=== PATIENT | female | born 1950 | race Asian ===

== ENCOUNTER 2016-04-03 14:25 | Emergency (ER) | payer OTHER ==
[~2016-04-03] VITALS: Ht 167.6 cm; Wt 104.3 kg
[~2016-04-03 14:25] MED LIST: ALBU90AE13 INH; ALPR0.5T24 PO; ASA LOW STR81 MG PO; BREO ELLIPTA 101 INH IN; BUDE1AER5 INH; CARI350T15 PO; DULO60CA2 PO; FLUT0.05 NAS; FOLI400T2 PO; FURO20TA67 PO; GABA300C2 PO; HYDR-2748 PO; LEVO0.0529 PO; LIDOPATCH TOP; METO25TA4 PO; METO50TA27 PO; MICRO-K10 MEQ PO; NEURONTIN800 MG PO; NITR0.4S2 SL; NYAMYC100000 MG PO; PANT40TA PO; PRAMIPEXOLE0.125 MG PO; SINGULAIR10 MG PO; SOMA350 MG PO; TIOTCAP2 INH; TIZA4TAB5 PO; XANAX XR0.5 MG PO; ZOLP10TA2 PO
[2016-04-03 15:17] LABS: PLATELET COUNT 472 K/uL (152-353)
[2016-04-03 15:30] LABS: POTASSIUM 3.9 mmol/L (3.6-5.2); SODIUM 139 mmol/L (136-145)
[2016-04-03 17:08] VITALS: BP 176/92; TEMP 98.1
== END 2016-04-03 17:09 | disposition home or self-care (01) ==
LOC: ED 14:25
DX: R82.71 Bacteriuria (principal); R60.9 Edema, unspecified; J44.9 Chronic obstructive pulmonary disease, unspecified
CPT/HCPCS: 36415; 80053; 81000; 83880; 85027; 93005; 99283

== ENCOUNTER 2016-04-15 11:52 | Emergency (ER) | payer OTHER ==
[~2016-04-15] VITALS: Ht 170.2 cm; Wt 104.8 kg
[2016-04-15] MEDS ORDERED: NIFE30TA PO (12:23)
[2016-04-15 12:55] LABS: PLATELET COUNT 498 K/uL (152-353)
[2016-04-15 13:15] VITALS: BP 143/88; TEMP 98
== END 2016-04-15 13:15 | disposition home or self-care (01) ==
LOC: ED 11:52
DX: I10 Essential (primary) hypertension (principal)
CPT/HCPCS: 36415; 81000; 85027; 99283

== ENCOUNTER 2016-04-19 10:52 | Outpatient (CLI) | payer OTHER ==
[~2016-04-19 10:52] MED LIST changes: +NIFE30TA PO
[2016-04-19 12:45] LABS: PLATELET COUNT 414 K/uL (152-353)
[2016-04-19 13:14] LABS: POTASSIUM 4.3 mmol/L (3.6-5.2); SODIUM 137 mmol/L (136-145)
== END 2016-04-19 20:04 | disposition home or self-care (01) ==
LOC: LABW 10:52
PROVIDERS: Internal Medicine Hematology & Oncology
DX: D50.8 Other iron deficiency anemias (principal); E55.9 Vitamin D deficiency, unspecified
CPT/HCPCS: 36415; 80053; 82306; 82728; 83540; 83550; 85027

== ENCOUNTER 2016-05-10 14:29 | Outpatient (CLI) | payer OTHER | END 2016-05-10 20:17 | disposition home or self-care (01) | LOC: RAD 14:29 | DX: M54.5 Low back pain (principal) ==

== ENCOUNTER 2016-05-15 14:12 | Emergency (ER) | payer OTHER ==
[~2016-05-15] VITALS: Ht 175.3 cm; Wt 106.1 kg
[2016-05-15 14:18] VITALS: BP 147/78; TEMP 98.1
== END 2016-05-15 14:46 | disposition home or self-care (01) ==
LOC: ED 14:12
DX: B37.0 Candidal stomatitis (principal)
CPT/HCPCS: 99282

== ENCOUNTER 2016-06-09 16:02 | Outpatient (CLI) | payer OTHER | END 2016-06-09 19:42 | disposition home or self-care (01) | LOC: RAD 16:02 | DX: M17.0 Bilateral primary osteoarthritis of knee (principal); M25.552 Pain in left hip ==

== ENCOUNTER 2016-06-14 23:26 | Outpatient (CLI) | payer OTHER | END 2016-06-15 00:10 | disposition short-term general hospital (02) | LOC: AMB 23:26 | DX: J44.1 Chronic obstructive pulmonary disease with (acute) exacerbation (principal); R07.89 Other chest pain; I20.0 Unstable angina; R00.0 Tachycardia, unspecified | CPT/HCPCS: A0425; A0427 ==

== ENCOUNTER 2016-10-27 10:17 | Outpatient (CLI) | payer OTHER ==
[2016-10-27 10:47] LABS: PLATELET COUNT 387 K/uL (152-353)
[2016-10-27 11:27] LABS: SODIUM 140 mmol/L (136-145)
== END 2016-10-27 11:20 | disposition home or self-care (01) ==
LOC: LABW 10:17
PROVIDERS: Internal Medicine Hematology & Oncology
DX: D50.8 Other iron deficiency anemias (principal); E55.9 Vitamin D deficiency, unspecified
CPT/HCPCS: 36415; 80053; 85027

== ENCOUNTER 2017-04-05 10:01 | Outpatient (CLI) | payer OTHER ==
[2017-04-05 10:34] LABS: PLATELET COUNT 351 K/uL (152-353)
== END 2017-04-05 11:05 | disposition home or self-care (01) ==
LOC: LABW 10:01
PROVIDERS: Physician Assistant
DX: I10 Essential (primary) hypertension (principal); E56.8 Deficiency of other vitamins; M15.0 Primary generalized (osteo)arthritis; R07.89 Other chest pain; E78.4 Other hyperlipidemia; E55.9 Vitamin D deficiency, unspecified; E61.1 Iron deficiency; E11.9 Type 2 diabetes mellitus without complications; E03.8 Other specified hypothyroidism; R79.82 Elevated C-reactive protein (CRP)
CPT/HCPCS: 36415; 80053; 80061; 80074; 82043; 82306; 82570; 82728; 83036; 83540; 83550; 84439; 84443; 84481; 85027; 85651; 86140

== ENCOUNTER 2017-04-17 13:21 | Emergency (ER) | payer OTHER ==
[~2017-04-17] VITALS: Ht 170.2 cm; Wt 103.0 kg
[2017-04-17 14:13] LABS: PLATELET COUNT 409 K/uL (152-353)
[2017-04-17 14:23] LABS: POTASSIUM 4.3 mmol/L (3.6-5.2)
[2017-04-17 15:10] VITALS: BP 152/85; TEMP 98.6
== END 2017-04-17 15:12 | disposition home or self-care (01) ==
LOC: ED 13:21
DX: R06.09 Other forms of dyspnea (principal); J06.9 Acute upper respiratory infection, unspecified; B34.9 Viral infection, unspecified
CPT/HCPCS: 36415; 80053; 85027; 85379; 87077; 87081; 87186; 87804; 87880; 96374; 99284; J2930

== ENCOUNTER 2017-04-26 10:25 | Outpatient (CLI) | payer OTHER ==
[2017-04-26 10:56] LABS: PLATELET COUNT 439 K/uL (152-353)
[2017-04-26 11:17] LABS: POTASSIUM 4.6 mmol/L (3.6-5.2)
== END 2017-04-26 20:05 | disposition home or self-care (01) ==
LOC: LABW 10:25
PROVIDERS: Nurse Practitioner Family
DX: D64.89 Other specified anemias (principal); R79.0 Abnormal level of blood mineral
CPT/HCPCS: 36415; 80053; 82728; 83540; 83550; 85027

== ENCOUNTER 2017-05-18 11:23 | Outpatient (CLI) | payer OTHER | END 2017-05-18 21:40 | disposition home or self-care (01) | LOC: US 11:23 | DX: I82.402 Acute embolism and thrombosis of unspecified deep veins of left lower extremity (principal) ==

== ENCOUNTER 2017-05-21 13:04 | Emergency (ER) | payer OTHER ==
[~2017-05-21] VITALS: Ht 170.2 cm; Wt 103.0 kg
[2017-05-21 13:10] VITALS: TEMP 97
[2017-05-21 14:51] LABS: PLATELET COUNT 319 K/uL (152-353)
[2017-05-21 14:59] LABS: POTASSIUM 4.5 mmol/L (3.6-5.2)
[2017-05-21 16:42] VITALS: BP 132/74
== END 2017-05-21 16:42 | disposition home or self-care (01) ==
LOC: ED 13:04
DX: R60.9 Edema, unspecified (principal); M25.471 Effusion, right ankle; I50.9 Heart failure, unspecified
CPT/HCPCS: 80053; 83880; 85027; 85379; 96372; 99283; J1885

== ENCOUNTER 2017-05-26 11:05 | Outpatient (CLI) | payer OTHER ==
[2017-05-26 12:02] LABS: PLATELET COUNT 310 K/uL (152-353)
== END 2017-05-26 12:05 | disposition home or self-care (01) ==
LOC: LABW 11:05
PROVIDERS: Nurse Practitioner Family
DX: D64.9 Anemia, unspecified (principal)
CPT/HCPCS: 36415; 80053; 82728; 83540; 83550; 85027

== ENCOUNTER 2017-07-12 08:33 | Outpatient (CLI) | payer OTHER | END 2017-07-12 22:28 | disposition home or self-care (01) | LOC: CT 08:33 | DX: R13.12 Dysphagia, oropharyngeal phase (principal) | CPT/HCPCS: 36415; 82565; 84520 ==

== ENCOUNTER 2017-07-14 08:21 | Outpatient (CLI) | payer OTHER | END 2017-07-14 19:25 | disposition home or self-care (01) | LOC: CT 08:21 | DX: R22.1 Localized swelling, mass and lump, neck (principal) | CPT/HCPCS: Q9963 ==

== ENCOUNTER 2017-08-17 11:33 | Day surgery (SDC) | payer OTHER ==
[2017-08-17 12:53] LABS: PLATELET COUNT 355 K/uL (152-353)
[2017-08-17 13:03] LABS: POTASSIUM 3.1 mmol/L (3.6-5.2)
== END 2017-08-17 14:32 | disposition home or self-care (01) ==
LOC: OR 11:33
PROVIDERS: Internal Medicine Gastroenterology
PROC: 0DB68ZZ Excision of Stomach, Via Natural or Artificial Opening Endoscopic (ICD-10-PCS; principal; 2017-08-17)
PROC: 0DB88ZZ Excision of Small Intestine, Via Natural or Artificial Opening Endoscopic (ICD-10-PCS; 2017-08-17)
PROC: 0D758ZZ Dilation of Esophagus, Via Natural or Artificial Opening Endoscopic (ICD-10-PCS; 2017-08-17)
DX: K29.50 Unspecified chronic gastritis without bleeding (principal); K25.9 Gastric ulcer, unspecified as acute or chronic, without hemorrhage or perforation; K21.0 Gastro-esophageal reflux disease with esophagitis; K22.4 Dyskinesia of esophagus; K22.2 Esophageal obstruction; K44.9 Diaphragmatic hernia without obstruction or gangrene; R10.13 Epigastric pain; R13.19 Other dysphagia
CPT/HCPCS: 80053; 85027; J1642; J2001; J2704

== ENCOUNTER 2017-09-02 08:50 | Outpatient (CLI) | payer OTHER ==
[2017-09-02 09:30] LABS: PLATELET COUNT 427 K/uL (152-353)
[2017-09-02 09:48] LABS: POTASSIUM 3.9 mmol/L (3.6-5.2)
== END 2017-09-02 23:09 | disposition home or self-care (01) ==
LOC: LABW 08:50
PROVIDERS: Internal Medicine
DX: I12.9 Hypertensive chronic kidney disease with stage 1 through stage 4 chronic kidney disease, or unspecified chronic kidney disease (principal); N18.3 Chronic kidney disease, stage 3 (moderate)
CPT/HCPCS: 36415; 80048; 80061; 82040; 84100; 84550; 85027

== ENCOUNTER 2017-09-12 11:56 | Outpatient (CLI) | payer OTHER | END 2017-09-12 22:12 | disposition home or self-care (01) | LOC: LABW 11:56 | DX: K64.0 First degree hemorrhoids (principal); Z02.83 Encounter for blood-alcohol and blood-drug test | CPT/HCPCS: 82272 ==

== ENCOUNTER 2017-09-16 11:02 | Outpatient (CLI) | payer OTHER | END 2017-09-16 19:10 | disposition home or self-care (01) | LOC: CT 11:02 | DX: N39.41 Urge incontinence (principal); R10.84 Generalized abdominal pain ==

== ENCOUNTER 2017-09-27 16:11 | Outpatient (CLI) | payer OTHER ==
[2017-09-27 16:26] LABS: PLATELET COUNT 346 K/uL (152-353)
== END 2017-09-27 19:15 | disposition home or self-care (01) ==
LOC: LABW 16:11
DX: R06.02 Shortness of breath (principal)
CPT/HCPCS: 36415; 85027

== ENCOUNTER 2018-07-14 17:20 | Emergency (ER) | payer OTHER ==
[~2018-07-14] VITALS: Ht 167.6 cm; Wt 106.1 kg
[2018-07-14 17:30] VITALS: TEMP 98
[2018-07-14 20:39] LABS: PLATELET COUNT 314 K/uL (152-353)
[2018-07-14 20:52] LABS: POTASSIUM 4.1 mmol/L (3.6-5.2); SODIUM 140 mmol/L (136-145)
[2018-07-14 21:35] VITALS: BP 180/95
== END 2018-07-14 21:35 | disposition home or self-care (01) ==
LOC: ED 17:20
PROVIDERS: Emergency Medicine
DX: J44.1 Chronic obstructive pulmonary disease with (acute) exacerbation (principal)
CPT/HCPCS: 36415; 80053; 82550; 83735; 83880; 84484; 85027; 94664; 96372; 99284; J2930

== ENCOUNTER 2018-10-23 11:47 | Emergency (ER) | payer OTHER ==
[~2018-10-23] VITALS: Ht 170.2 cm; Wt 105.2 kg
[2018-10-23 11:47] VITALS: TEMP 97.5
[2018-10-23 13:03] LABS: PLATELET COUNT 400 K/uL (152-353)
[2018-10-23 13:11] LABS: POTASSIUM 3.7 mmol/L (3.6-5.2); SODIUM 140 mmol/L (136-145)
[2018-10-23 16:30] VITALS: BP 168/97
[2018-10-23] MEDS ORDERED: CYCL10TA35 PO (17:24)
[2018-10-23] MEDS ORDERED: HYDRALAZINE25 MG PO (17:24)
[2018-10-23] MEDS ORDERED: CARTIA XT240 MG PO (17:24)
[2018-10-23] MEDS ORDERED: METFORMIN HCL500 MG PO (17:25)
[2018-10-23] MEDS ORDERED: METO2.5T3 PO (17:26)
[2018-10-23] MEDS ORDERED: TORSEMIDE20 MG PO (17:26)
[2018-10-23] MEDS ORDERED: ISOSORB MONO120 MG PO (17:27)
[2018-10-23] MEDS ORDERED: AZELASTINE HCL0.15 % NAS (17:28)
[2018-10-23] MEDS ORDERED: ENDOCET1 TA1 PO (17:29)
[2018-10-23] MEDS ORDERED: MECLIZINE25 MG PO (17:30)
[2018-10-23] MEDS ORDERED: TRAMADOL HYDROC50 MG PO (17:30)
[2018-10-23] MEDS ORDERED: MOBIC7.5 M1 PO (17:30)
[2018-10-23] MEDS ORDERED: TOPROL XL200 M1 PO (17:31)
[2018-10-23] MEDS ORDERED: LIPITOR10 MG PO (17:32)
[2018-10-23] MEDS ORDERED: LEVO0.0218 PO (17:33)
[2018-10-23] MEDS ORDERED: BEVESPI AEROSPH1 AER INH (17:34)
[2018-10-23] MEDS ORDERED: PANTOPRAZOLE 40MG TA PO (17:35)
[2018-10-23] MEDS ORDERED: CITALOPRAM20 M1 PO (17:36)
== END 2018-10-23 18:00 | disposition short-term general hospital (02) ==
LOC: ED 11:57
PROVIDERS: Emergency Medicine
DX: R07.89 Other chest pain (principal); J44.9 Chronic obstructive pulmonary disease, unspecified; R06.02 Shortness of breath; R00.0 Tachycardia, unspecified
CPT/HCPCS: 36415; 80053; 83690; 83735; 83880; 84484; 85027; 93005; 94664; 96360; 99284

== ENCOUNTER 2018-11-27 11:35 | Outpatient (CLI) | payer OTHER ==
[~2018-11-27 11:35] MED LIST changes: +AZELASTINE HCL0.15 % NAS; +BEVESPI AEROSPH1 AER INH; +CARTIA XT240 MG PO; +CITALOPRAM20 M1 PO; +CYCL10TA35 PO; +ENDOCET1 TA1 PO; +HYDRALAZINE25 MG PO; +ISOSORB MONO120 MG PO; +LEVO0.0218 PO; +LIPITOR10 MG PO; +MECLIZINE25 MG PO; +METFORMIN HCL500 MG PO; +METO2.5T3 PO; +MOBIC7.5 M1 PO; +PANTOPRAZOLE 40MG TA PO; +TOPROL XL200 M1 PO; +TORSEMIDE20 MG PO; +TRAMADOL HYDROC50 MG PO
== END 2018-11-27 22:39 | disposition home or self-care (01) ==
LOC: RAD 11:35
DX: R06.02 Shortness of breath (principal); R05 Cough; R42 Dizziness and giddiness; R51 Headache; S09.93XA Unspecified injury of face, initial encounter

== ENCOUNTER 2018-12-24 14:09 | Emergency (ER) | payer OTHER ==
[~2018-12-24] VITALS: Ht 170.2 cm; Wt 99.8 kg
[2018-12-24 17:25] VITALS: BP 137/78; TEMP 98.1
== END 2018-12-24 17:25 | disposition home or self-care (01) ==
LOC: ED 14:09
DX: S83.8X2A Sprain of other specified parts of left knee, initial encounter (principal); S63.592A Other specified sprain of left wrist, initial encounter; S63.8X2A Sprain of other part of left wrist and hand, initial encounter; W18.39XA Other fall on same level, initial encounter; Y92.098 Other place in other non-institutional residence as the place of occurrence of the external cause
CPT/HCPCS: 96372; 99283; J1885

== ENCOUNTER 2019-01-19 12:43 | Emergency (ER) | payer OTHER ==
[~2019-01-19] VITALS: Ht 170.2 cm; Wt 108.4 kg
[2019-01-19 14:26] LABS: PLATELET COUNT 275 K/uL (152-353)
[2019-01-19 16:44] VITALS: BP 151/82; TEMP 97.7
== END 2019-01-19 16:44 | disposition home or self-care (01) ==
LOC: ED 12:43
PROVIDERS: Family Medicine
DX: S70.01XA Contusion of right hip, initial encounter (principal); S80.02XA Contusion of left knee, initial encounter; S30.0XXA Contusion of lower back and pelvis, initial encounter; J32.9 Chronic sinusitis, unspecified; W18.39XA Other fall on same level, initial encounter; Y92.481 Parking lot as the place of occurrence of the external cause
CPT/HCPCS: 80053; 85027; 99283

== ENCOUNTER 2019-01-21 10:27 | Emergency (ER) | payer OTHER ==
[~2019-01-21] VITALS: Ht 170.2 cm; Wt 108.4 kg
[2019-01-21 10:34] VITALS: TEMP 98.1
[2019-01-21 11:26] LABS: PLATELET COUNT 229 K/uL (152-353)
[2019-01-21 11:34] LABS: POTASSIUM 3.7 mmol/L (3.6-5.2); SODIUM 141 mmol/L (136-145)
[2019-01-21 11:44] LABS: PARTIAL THROMBOPLASTIN TIME 21.4 SECONDS (24.5-33.6)
[2019-01-21 13:47] VITALS: BP 178/110
== END 2019-01-21 14:05 | disposition home or self-care (01) ==
LOC: ED 10:27
PROVIDERS: Hospitalist
DX: M54.5 Low back pain (principal); S20.222A Contusion of left back wall of thorax, initial encounter; S20.221A Contusion of right back wall of thorax, initial encounter; S30.0XXA Contusion of lower back and pelvis, initial encounter; R06.02 Shortness of breath
CPT/HCPCS: 36415; 80053; 81000; 82550; 82553; 83880; 84484; 85027; 85610; 85730; 93005; 96360; 96361; 96374; 96375; 99284; J1170; J1885; J2405

== ENCOUNTER 2019-04-26 13:37 | Outpatient (CLI) | payer OTHER | END 2019-04-26 19:47 | disposition home or self-care (01) | LOC: LABW 13:37 | DX: K59.1 Functional diarrhea (principal) | CPT/HCPCS: 82272; 82705; 83630; 87015; 87045; 87328; 87329; 87899 ==

== ENCOUNTER 2019-05-21 13:11 | Outpatient (CLI) | payer OTHER | END 2019-05-21 19:20 | disposition home or self-care (01) | LOC: US 13:11 | DX: I73.9 Peripheral vascular disease, unspecified (principal) ==

== ENCOUNTER 2019-08-04 13:00 | Emergency (ER) | payer OTHER ==
[~2019-08-04] VITALS: Ht 170.2 cm; Wt 97.1 kg
[2019-08-04 14:00] LABS: PLATELET COUNT 357 K/uL (152-353)
[2019-08-04 14:04] LABS: POTASSIUM 4.6 mmol/L (3.6-5.2); SODIUM 134 mmol/L (136-145)
[2019-08-04 15:46] VITALS: BP 138/83; TEMP 98.2
== END 2019-08-04 16:00 | disposition home or self-care (01) ==
LOC: ED 13:00
DX: J44.1 Chronic obstructive pulmonary disease with (acute) exacerbation (principal); R06.02 Shortness of breath
CPT/HCPCS: 36415; 36600; 80053; 82805; 83880; 84484; 85027; 93005; 94664; 96374; 99284; J2930

== ENCOUNTER 2019-08-22 16:51 | Emergency (ER) | payer OTHER ==
[~2019-08-22] VITALS: Ht 170.2 cm; Wt 97.1 kg
[2019-08-22 20:07] VITALS: BP 138/82; TEMP 97.8
== END 2019-08-22 20:07 | disposition home or self-care (01) ==
LOC: ED 16:51
PROC: 2W39X1Z Immobilization of Left Upper Extremity using Splint (ICD-10-PCS; principal; 2019-08-22)
DX: S42.495A Other nondisplaced fracture of lower end of left humerus, initial encounter for closed fracture (principal); S62.397A Other fracture of fifth metacarpal bone, left hand, initial encounter for closed fracture; W18.39XA Other fall on same level, initial encounter; Y92.481 Parking lot as the place of occurrence of the external cause
CPT/HCPCS: 96372; 99283; J1885

== ENCOUNTER 2019-09-05 14:16 | Emergency (ER) | payer OTHER ==
[~2019-09-05] VITALS: Ht 170.2 cm; Wt 95.3 kg
[2019-09-05 14:16] VITALS: TEMP 98.7
[2019-09-05 14:46] LABS: PLATELET COUNT 529 K/uL (152-353)
[2019-09-05 14:54] LABS: POTASSIUM 4.3 mmol/L (3.6-5.2); SODIUM 141 mmol/L (136-145)
[2019-09-05 17:53] VITALS: BP 126/74
== END 2019-09-05 17:53 | disposition home or self-care (01) ==
LOC: ED 14:17
PROVIDERS: Emergency Medicine
DX: R07.89 Other chest pain (principal)
CPT/HCPCS: 80053; 82550; 82553; 84484; 85027; 93005; 99284

== ENCOUNTER 2019-09-16 14:54 | Emergency (ER) | payer OTHER ==
[~2019-09-16] VITALS: Ht 170.2 cm; Wt 93.9 kg
[2019-09-16 14:59] VITALS: TEMP 98.5
[2019-09-16] MEDS ORDERED: SPIRONOLACT25 MG PO (15:26)
[2019-09-16] MEDS ORDERED: ELIQUIS5 MG PO (15:27)
[2019-09-16] MEDS ORDERED: NAPROXEN EC500 MG PO (15:27)
[2019-09-16] MEDS ORDERED: IRON325 MG PO (15:28)
[2019-09-16] MEDS ORDERED: CALCIUM + D PO (15:29)
[2019-09-16] MEDS ORDERED: VITAMIN D32000 UNI1 PO (15:31)
[2019-09-16] MEDS ORDERED: POT CHLORIDE10 ME1 PO (15:32)
[2019-09-16 15:43] LABS: PLATELET COUNT 360 K/uL (152-353)
[2019-09-16 15:50] LABS: POTASSIUM 4.9 mmol/L (3.6-5.2); SODIUM 142 mmol/L (136-145)
[2019-09-16 15:57] LABS: PARTIAL THROMBOPLASTIN TIME 45.4 SECONDS (24.5-33.6)
[2019-09-16 16:45] VITALS: BP 102/63
[2019-09-17] MEDS ORDERED: POTASSIUM CHLO10 ME1 PO (10:40)
[2019-09-17] MEDS ORDERED: GABA300C2 PO (10:44)
[2019-09-17] MEDS ORDERED: TRAMADOL HYDROC50 MG PO (10:46)
[2019-09-17] MEDS ORDERED: ENDOCET1 TA1 PO (10:46)
[2019-09-17] MEDS ORDERED: AMBIEN5 MG PO (10:47)
[2019-09-17] MEDS ORDERED: ALPR0.5T24 PO (11:14)
[2019-09-17] MEDS ORDERED: ASA LOW DOSE81 MG PO (11:16)
== END 2019-09-16 17:15 | disposition still patient (30) ==
LOC: ED 14:57
PROVIDERS: Hospitalist
DX: R07.89 Other chest pain (principal); R06.02 Shortness of breath
CPT/HCPCS: 36415; 80053; 82550; 83880; 84484; 85027; 85610; 85730; 93005; 96374; 99284; J1885

== ENCOUNTER 2020-01-10 16:59 | Inpatient (IN) | payer OTHER ==
[2020-01-10] VITALS (7 sets, daily range): BP systolic 118–167; BP diastolic 56–88; TEMP 97.2–98.6
[~2020-01-10] VITALS: Ht 170.2 cm; Wt 85.7 kg
[~2020-01-10 16:59] MED LIST changes: +AMBIEN5 MG PO; +AMOX875T8 PO; +ASA LOW DOSE81 MG PO; +CALCIUM + D PO; +ELIQUIS5 MG PO; +IRON325 MG PO; +NAPROXEN EC500 MG PO; +POT CHLORIDE10 ME1 PO; +POTASSIUM CHLO10 ME1 PO; +SPIRONOLACT25 MG PO; +VITAMIN D32000 UNI1 PO
[2020-01-10 18:46] LABS: PLATELET COUNT 443 K/uL (152-353)
[2020-01-10 18:58] LABS: POTASSIUM 4.7 mmol/L (3.6-5.2); SODIUM 138 mmol/L (136-145)
[2020-01-10 19:07] LABS: PARTIAL THROMBOPLASTIN TIME 27.4 SECONDS (24.5-33.6)
[2020-01-11] VITALS (18 sets, daily range): BP systolic 104–138; BP diastolic 48–65; TEMP 98.1–99.4; Ht 170.2 cm; Wt 85.7 kg
[2020-01-11] MEDS ORDERED: HYDROXYZINE HYD10 MG PO (05:50)
[2020-01-11 08:08] LABS: PLATELET COUNT 374 K/uL (152-353)
[2020-01-11 08:20] LABS: POTASSIUM 4.1 mmol/L (3.6-5.2)
[2020-01-11] MEDS ORDERED: DICL1GEL2 TOP (15:20)
[2020-01-12] VITALS: BP 112/48; TEMP 98.8
[2020-01-12 04:55] VITALS: BP 135/74; TEMP 98.3
[2020-01-12 08:00] VITALS: BP 140/70; TEMP 98
[2020-01-12 09:53] LABS: PLATELET COUNT 339 K/uL (152-353)
[2020-01-12 12:00] VITALS: BP 166/73; TEMP 97.8
[2020-01-12] MEDS ORDERED: LEVAQUIN250 MG PO (13:34)
== END 2020-01-12 16:25 | disposition home or self-care (01) | DRG 896 ==
LOC: ED 16:59 → PCU 20:17 → MED/SURG 01-11 17:37
PROVIDERS: Internal Medicine Endocrinology, Diabetes & Metabolism; ADMIT Hospitalist
DX: F13.988 Sedative, hypnotic or anxiolytic use, unspecified with other sedative, hypnotic or anxiolytic-induced disorder (principal); J18.8 Other pneumonia, unspecified organism; G92 Toxic encephalopathy; N17.9 Acute kidney failure, unspecified; J44.0 Chronic obstructive pulmonary disease with (acute) lower respiratory infection; I10 Essential (primary) hypertension; E11.9 Type 2 diabetes mellitus without complications; I25.10 Atherosclerotic heart disease of native coronary artery without angina pectoris; E78.49 Other hyperlipidemia; G89.4 Chronic pain syndrome; I48.91 Unspecified atrial fibrillation; I25.2 Old myocardial infarction; E03.8 Other specified hypothyroidism
CPT/HCPCS: 80048; 80053; 80320; 81000; 82550; 83605; 83880; 84484; 85027; 85610; 85730; 87040; 87635; 93005; 94640; 94664; 94760; 96360; 96365; 96375; 99284; J0456; J0696; J1642; J1650; J2405; U0003

== ENCOUNTER 2020-01-25 13:47 | Outpatient (CLI) | payer OTHER ==
[~2020-01-25 13:47] MED LIST changes: +DICL1GEL2 TOP; +HYDROXYZINE HYD10 MG PO; +LEVAQUIN250 MG PO
== END 2020-01-25 19:13 | disposition home or self-care (01) ==
LOC: LAB 13:47
DX: N39.0 Urinary tract infection, site not specified (principal)
CPT/HCPCS: 81000

== ENCOUNTER 2020-03-27 10:52 | Inpatient (IN) | payer OTHER ==
[~2020-03-27] VITALS: Ht 170.2 cm; Wt 84.2 kg
[2020-03-27 11:04] VITALS: BP 179/81; TEMP 97
[2020-03-27 11:35] LABS: PLATELET COUNT 351 K/uL (152-353)
[2020-03-27 11:50] LABS: POTASSIUM 3.7 mmol/L (3.6-5.2); SODIUM 133 mmol/L (136-145)
[2020-03-27 11:53] LABS: PARTIAL THROMBOPLASTIN TIME 18.7 SECONDS (24.5-33.6)
[2020-03-27 16:16] VITALS: BP 203/95; TEMP 98.7; Ht 170.2 cm; Wt 84.2 kg
[2020-03-27 19:52] VITALS: BP 161/88; TEMP 99.1
[2020-03-28] VITALS: BP 165/83; TEMP 98.8
[2020-03-28 03:41] VITALS: BP 160/58; TEMP 98.6
[2020-03-28 06:53] LABS: PLATELET COUNT 361 K/uL (152-353)
[2020-03-28 07:51] LABS: POTASSIUM 4.5 mmol/L (3.6-5.2)
[2020-03-28 08:00] VITALS: BP 202/93; TEMP 98.8
[2020-03-28 12:00] VITALS: BP 156/69; TEMP 97.9
[2020-03-28 16:00] VITALS: BP 204/79; TEMP 98.7
[2020-03-28 20:00] VITALS: BP 171/78; TEMP 99.4
[2020-03-29] VITALS: BP 162/68; TEMP 99
[2020-03-29 04:00] VITALS: BP 177/77; TEMP 99
[2020-03-29 06:18] LABS: PLATELET COUNT 316 K/uL (152-353)
[2020-03-29 06:29] LABS: POTASSIUM 4.3 mmol/L (3.6-5.2)
[2020-03-29 08:00] VITALS: BP 193/81; TEMP 99.1
== END 2020-03-29 16:35 | disposition home or self-care (01) | DRG 177 ==
LOC: ED 10:52 → MED/SURG 14:55
PROVIDERS: Emergency Medicine Emergency Medical Services; ADMIT Family Medicine; ATTEND Family Medicine
DX: U07.1 COVID-19 (principal); J18.8 Other pneumonia, unspecified organism; I10 Essential (primary) hypertension; G89.29 Other chronic pain; E78.49 Other hyperlipidemia; E66.8 Other obesity; I95.89 Other hypotension; E86.0 Dehydration
CPT/HCPCS: 36415; 80053; 82550; 82728; 83605; 83735; 84100; 84484; 85007; 85027; 85379; 85610; 85730; 86140; 87635; 93005; 94667; 94668; 94760; 99283; J0456; J0696; J1100; U0003

== ENCOUNTER 2020-05-21 08:58 | Outpatient (CLI) | payer OTHER | END 2020-05-21 21:05 | disposition home or self-care (01) | LOC: US 08:58 | PROVIDERS: ATTEND Internal Medicine Sleep Medicine | DX: R49.0 Dysphonia (principal); R06.02 Shortness of breath; R05 Cough; R22.1 Localized swelling, mass and lump, neck; R50.9 Fever, unspecified; R53.83 Other fatigue; R63.5 Abnormal weight gain; D52.8 Other folate deficiency anemias; D86.0 Sarcoidosis of lung; D50.8 Other iron deficiency anemias ==

== ENCOUNTER 2020-05-26 12:47 | Outpatient (CLI) | payer OTHER | END 2020-05-26 19:24 | disposition home or self-care (01) | LOC: RAD 12:47 | PROVIDERS: ATTEND Internal Medicine Sleep Medicine | DX: R49.0 Dysphonia (principal); R06.02 Shortness of breath; R05 Cough; R22.1 Localized swelling, mass and lump, neck ==

== ENCOUNTER 2020-06-17 09:10 | Outpatient (CLI) | payer OTHER | END 2020-06-17 20:03 | disposition home or self-care (01) | LOC: RESP 09:10 | PROVIDERS: ATTEND Specialist | DX: Z71.9 Counseling, unspecified (principal); I50.9 Heart failure, unspecified; R07.89 Other chest pain; R06.09 Other forms of dyspnea; R00.2 Palpitations; R55 Syncope and collapse ==

== ENCOUNTER 2020-07-26 10:12 | Emergency (ER) | payer OTHER ==
[~2020-07-26] VITALS: Ht 170.2 cm; Wt 83.9 kg
[2020-07-26 10:15] VITALS: TEMP 99.3
[2020-07-26 11:50] LABS: POTASSIUM 3.3 mmol/L (3.6-5.2); SODIUM 139 mmol/L (136-145)
[2020-07-26 11:57] LABS: PLATELET COUNT 417 K/uL (152-353)
[2020-07-26 12:02] LABS: PARTIAL THROMBOPLASTIN TIME 22.2 SECONDS (24.5-33.6)
[2020-07-26 14:06] VITALS: BP 110/60
== END 2020-07-26 14:06 | disposition home or self-care (01) ==
LOC: ED 10:12
PROVIDERS: Family Medicine
DX: S00.83XA Contusion of other part of head, initial encounter (principal); S40.012A Contusion of left shoulder, initial encounter; R10.84 Generalized abdominal pain; Z91.81 History of falling; K57.32 Diverticulitis of large intestine without perforation or abscess without bleeding; J32.8 Other chronic sinusitis; W18.39XA Other fall on same level, initial encounter; Y92.098 Other place in other non-institutional residence as the place of occurrence of the external cause
CPT/HCPCS: 36415; 80053; 81000; 82150; 82550; 84484; 85007; 85027; 85610; 85730; 93005; 96374; 96375; 99284; J1200; J1642

== ENCOUNTER 2020-12-19 21:36 | Emergency (ER) | payer OTHER ==
[~2020-12-19] VITALS: Ht 170.2 cm; Wt 78.9 kg
[2020-12-19 21:40] VITALS: TEMP 98.1
[2020-12-19 22:11] LABS: PLATELET COUNT 451 K/uL (152-353)
[2020-12-19 22:18] LABS: POTASSIUM 4.1 mmol/L (3.6-5.2); SODIUM 136 mmol/L (136-145)
[2020-12-19 22:26] LABS: PARTIAL THROMBOPLASTIN TIME 20.3 SECONDS (24.5-33.6)
[2020-12-20 00:07] VITALS: BP 132/63
== END 2020-12-20 00:21 | disposition home or self-care (01) ==
LOC: ED 21:36
PROVIDERS: Hospitalist
PROC: 0HQ0XZZ Repair Scalp Skin, External Approach (ICD-10-PCS; principal; 2020-12-19)
DX: S01.01XA Laceration without foreign body of scalp, initial encounter (principal); S09.8XXA Other specified injuries of head, initial encounter; I50.9 Heart failure, unspecified; W22.09XA Striking against other stationary object, initial encounter; Y92.89 Other specified places as the place of occurrence of the external cause
CPT/HCPCS: 36415; 80053; 80320; 82550; 83880; 84484; 85027; 85610; 85730; 90472; 90715; 93005; 96365; 96375; 99284; J0690; J1885; J2405; J7040

== ENCOUNTER 2021-01-04 20:43 | Emergency (ER) | payer OTHER ==
[~2021-01-04] VITALS: Ht 170.2 cm; Wt 80.3 kg
[2021-01-04 22:30] VITALS: BP 139/57; TEMP 98.9
== END 2021-01-04 22:30 | disposition home or self-care (01) ==
LOC: ED 20:43
DX: G44.209 Tension-type headache, unspecified, not intractable (principal)
CPT/HCPCS: 96372; 99283; J1885; J2405

== ENCOUNTER 2021-01-19 10:32 | Outpatient (CLI) | payer OTHER | END 2021-01-19 19:24 | disposition home or self-care (01) | LOC: NM 10:32 → MAMMO 11:00 → NM 19:24 | PROVIDERS: ATTEND Psychiatry & Neurology Neurology | DX: R06.02 Shortness of breath (principal); R05.9 Cough, unspecified; R63.4 Abnormal weight loss; Z12.31 Encounter for screening mammogram for malignant neoplasm of breast | CPT/HCPCS: A9561 ==

== ENCOUNTER 2021-02-02 12:58 | Observation (INO) | payer OTHER ==
[~2021-02-02] VITALS: Ht 170.2 cm; Wt 52.3 kg
[2021-02-02 12:58] VITALS: BP 104/64; TEMP 97.6
[2021-02-02 14:38] LABS: PLATELET COUNT 492 K/uL (152-353)
[2021-02-02 15:12] LABS: PARTIAL THROMBOPLASTIN TIME 24.8 SECONDS (24.5-33.6)
[2021-02-02 15:43] LABS: POTASSIUM 3.7 mmol/L (3.6-5.2)
[2021-02-02 17:30] VITALS: BP 128/60; TEMP 98.2; Ht 170.2 cm; Wt 52.3 kg
[2021-02-02 20:00] VITALS: BP 112/68; TEMP 99.1
[2021-02-03 00:07] VITALS: BP 118/61; TEMP 99.4
[2021-02-03 04:00] VITALS: BP 118/64; TEMP 98.9
[2021-02-03 08:00] VITALS: BP 143/68; TEMP 98.3
[2021-02-03] MEDS ORDERED: MECLIZINE 2525 MG PO (08:02)
[2021-02-03] MEDS ORDERED: CORRECTOL100 MG PO (08:03)
[2021-02-03] MEDS ORDERED: MEGESTROL AC40 MG PO (08:05)
[2021-02-03] MEDS ORDERED: MOBIC7.5 M1 PO (08:05)
[2021-02-03] MEDS ORDERED: DITROPAN XL10 MG PO (08:06)
[2021-02-03] MEDS ORDERED: TOPIRAMATE25 M1 PO (08:07)
[2021-02-03] MEDS ORDERED: DONEPEZIL HYDROC5 M1 PO (08:07)
[2021-02-03] MEDS ORDERED: BEVESPI AEROSPH1 AER INH (09:44)
[2021-02-03 12:00] VITALS: BP 116/68; TEMP 98.6
== END 2021-02-03 15:08 | disposition home health service (06) ==
LOC: ED 12:58 → MED/SURG 15:30
PROVIDERS: Hospitalist; ADMIT Internal Medicine; ATTEND Internal Medicine
DX: R41.82 Altered mental status, unspecified (principal); T42.4X5A Adverse effect of benzodiazepines, initial encounter; E03.8 Other specified hypothyroidism; J44.9 Chronic obstructive pulmonary disease, unspecified; Z99.81 Dependence on supplemental oxygen; K21.9 Gastro-esophageal reflux disease without esophagitis; E78.49 Other hyperlipidemia; F03.90 Unspecified dementia, unspecified severity, without behavioral disturbance, psychotic disturbance, mood disturbance, and anxiety; I48.91 Unspecified atrial fibrillation; E46 Unspecified protein-calorie malnutrition; E87.6 Hypokalemia; E11.22 Type 2 diabetes mellitus with diabetic chronic kidney disease; I13.0 Hypertensive heart and chronic kidney disease with heart failure and stage 1 through stage 4 chronic kidney disease, or unspecified chronic kidney disease; N18.30 Chronic kidney disease, stage 3 unspecified; I50.9 Heart failure, unspecified; T45.0X5A Adverse effect of antiallergic and antiemetic drugs, initial encounter; T44.3X5A Adverse effect of other parasympatholytics [anticholinergics and antimuscarinics] and spasmolytics, initial encounter; T40.2X5A Adverse effect of other opioids, initial encounter; T42.6X5A Adverse effect of other antiepileptic and sedative-hypnotic drugs, initial encounter; T43.595A Adverse effect of other antipsychotics and neuroleptics, initial encounter; Y92.89 Other specified places as the place of occurrence of the external cause
CPT/HCPCS: 36415; 80053; 80320; 81000; 82550; 83880; 84484; 85027; 85610; 85730; 87635; 93005; 94760; 96360; 96374; 96375; 99220; 99284; J1956; G0378; J1650; J1885; J2405; J3490; U0003

== ENCOUNTER 2021-02-06 08:56 | Observation (INO) | payer OTHER ==
[~2021-02-06] VITALS: Ht 170.2 cm; Wt 78.1 kg
[~2021-02-06 08:56] MED LIST changes: +CORRECTOL100 MG PO; +DITROPAN XL10 MG PO; +DONEPEZIL HYDROC5 M1 PO; +MECLIZINE 2525 MG PO; +MEGESTROL AC40 MG PO; +TOPIRAMATE25 M1 PO
[2021-02-06 08:57] VITALS: BP 115/73; TEMP 97.1
[2021-02-06 09:33] LABS: PLATELET COUNT 502 K/uL (152-353)
[2021-02-06 11:48] VITALS: BP 134/72; TEMP 99; Ht 170.2 cm; Wt 78.1 kg
[2021-02-06] MEDS ORDERED: LIPITOR10 MG PO (15:46)
[2021-02-06] MEDS ORDERED: METFORMIN HYDR500 M1 PO (15:47)
[2021-02-06] MEDS ORDERED: MELOXICAM7.5 MG PO (15:47)
[2021-02-06] MEDS ORDERED: METO2.5T3 PO (15:48)
[2021-02-06] MEDS ORDERED: TOPROL XL200 M1 PO (15:48)
[2021-02-06] MEDS ORDERED: OXYBUTYNIN10 MG PO (15:49)
[2021-02-06] MEDS ORDERED: CEFDINIR300 MG PO (15:50)
[2021-02-06] MEDS ORDERED: DONEPEZIL HYDROC5 MG PO (15:50)
[2021-02-06] MEDS ORDERED: MECLIZINE HYDRO25 MG PO (15:51)
[2021-02-06] MEDS ORDERED: NITR0.4S2 SL (15:52)
[2021-02-06] MEDS ORDERED: ALPR0.5T24 PO (15:52)
[2021-02-06] MEDS ORDERED: ENDOCET1 TA1 PO (15:55)
[2021-02-06] MEDS ORDERED: PANTOPRAZOLE SO40 M1 PO (15:57)
[2021-02-06] MEDS ORDERED: EUTHYROX25 MCG PO (15:57)
[2021-02-06] MEDS ORDERED: HYDROXYZ HCL10 MG PO (15:59)
[2021-02-06] MEDS ORDERED: CITALOPRAM20 MG PO (16:00)
[2021-02-06] MEDS ORDERED: DILTIAZEM HYDR240 MG PO (16:01)
[2021-02-06] MEDS ORDERED: ASA LOW DOSE81 MG PO (16:04)
[2021-02-06 16:57] VITALS: BP 135/69; TEMP 99.4
[2021-02-06 20:38] VITALS: BP 146/71; TEMP 97.7
[2021-02-07] VITALS (7 sets, daily range): BP systolic 92–126; BP diastolic 42–69; TEMP 98.1–99.3
[2021-02-07 07:59] LABS: POTASSIUM 4.8 mmol/L (3.6-5.2)
[2021-02-07 08:25] LABS: PLATELET COUNT 369 K/uL (152-353)
[2021-02-08 04:00] VITALS: BP 135/65; TEMP 98.4
[2021-02-08 05:00] LABS: POTASSIUM 4.5 mmol/L (3.6-5.2)
[2021-02-08 08:00] VITALS: BP 117/75; TEMP 98.7
[2021-02-08 08:06] LABS: PLATELET COUNT 417 K/uL (152-353)
[2021-02-08 12:00] VITALS: BP 124/70; TEMP 99.4
[2021-02-08 16:00] VITALS: BP 123/69; TEMP 98.3
[2021-02-08 20:00] VITALS: BP 131/73; TEMP 98.4
[2021-02-09] VITALS: BP 142/81; TEMP 99.1
[2021-02-09 04:00] VITALS: BP 132/71; TEMP 98.9
[2021-02-09 04:44] LABS: PLATELET COUNT 446 K/uL (152-353)
[2021-02-09 05:14] LABS: POTASSIUM 4.6 mmol/L (3.6-5.2)
== END 2021-02-09 12:46 | disposition home or self-care (01) ==
LOC: ED 08:56 → MED/SURG 10:00
PROVIDERS: Hospitalist; ADMIT Internal Medicine Endocrinology, Diabetes & Metabolism; ATTEND Internal Medicine Endocrinology, Diabetes & Metabolism
DX: J18.8 Other pneumonia, unspecified organism (principal); G92.8 Other toxic encephalopathy; I25.10 Atherosclerotic heart disease of native coronary artery without angina pectoris; Z86.73 Personal history of transient ischemic attack (TIA), and cerebral infarction without residual deficits; G89.4 Chronic pain syndrome; K21.9 Gastro-esophageal reflux disease without esophagitis; I11.0 Hypertensive heart disease with heart failure; I50.9 Heart failure, unspecified; E03.8 Other specified hypothyroidism; J44.0 Chronic obstructive pulmonary disease with (acute) lower respiratory infection; E11.9 Type 2 diabetes mellitus without complications
CPT/HCPCS: 36415; 51702; 80048; 80053; 80320; 81000; 82172; 82247; 82550; 82652; 82948; 82977; 83010; 83516; 83880; 83883; 83970; 84100; 84155; 84165; 84460; 84484; 85007; 85027; 85610; 85730; 86038; 86160; 86255; 86592; 87040; 87516; 87635; 93005; 94640; 94664; 94760; 96365; 96367; 96372; 99220; 99284; G0378; J0456; J1650; J1956; J3370; U0003

== ENCOUNTER 2021-02-15 03:59 | Inpatient (IN) | payer OTHER ==
[~2021-02-15] VITALS: Ht 170.2 cm; Wt 75.3 kg
[2021-02-15] VITALS (15 sets, daily range): BP systolic 103–143; BP diastolic 47–93; TEMP 97.5–98.9; Ht 170.2 cm; Wt 75.3 kg
[~2021-02-15 03:59] MED LIST changes: +CEFDINIR300 MG PO; +CITALOPRAM20 MG PO; +DILTIAZEM HYDR240 MG PO; +DONEPEZIL HYDROC5 MG PO; +EUTHYROX25 MCG PO; +HYDROXYZ HCL10 MG PO; +MECLIZINE HYDRO25 MG PO; +MELOXICAM7.5 MG PO; +METFORMIN HYDR500 M1 PO; +OXYBUTYNIN10 MG PO; +PANTOPRAZOLE SO40 M1 PO
[2021-02-15 05:00] LABS: POTASSIUM 4.8 mmol/L (3.6-5.2)
[2021-02-15 05:26] LABS: PLATELET COUNT 439 K/uL (152-353)
[2021-02-15 05:47] LABS: PARTIAL THROMBOPLASTIN TIME 28.9 SECONDS (24.5-33.6)
--- NOTE | 2021-02-15 11:32 | NUR ---
PT ADMITTED FROM ER TO MED-SURG FLOOR AT 0945 VIA STRETCHER. PT IMMOBILE, BUT DOES USE A WALKER/ WHEELCHAIR AT HOME. SHE'S ALERT AND ORIENTED BUT CONFUSED AT TIMES. PT HAS PORT-A-CATH TO LCW INTACT WITH NO DIFFICULTY INFUSING 0.45% OF NS AT 125ML/HR. NO REDNESS OR SWELLING NOTED TO SITE. PT HAS OPEN WOUND TO LEFT KNEE FROM PREVIOUS FALL AT HOME, HAS HX OF FALLS. WOUND BED REDDISH IN COLOR WITH NO DRAINAGE NOTED, SIZE:3.6 X 3.5 X 0.1CM. PT ON CLEAR LIQUID DIET. HAS 16 TRISTANIAN PERALTA PUT IN ON 02/15/21 IN ER. PT DENIES ANY CHEST PAIN OR DISCOMFORT AT PRESENT TIME. DAUGHTER KORI AT PTS BEDSIDE ONCE ARRIVED ON FLOOR.
[2021-02-15 12:59] LABS: POTASSIUM 4.1 mmol/L (3.6-5.2)
--- NOTE | 2021-02-15 13:22 | NUR ---
PT C/O PAIN IN "IN MY RIGHT BREAST" ASKED TO DESCRIBE THE SEVERITY OF PAIN, PT STATED, "IT'S NOT THAT BAD" ASKED PT IF SHE WANTED MEDICATION FOR THE PAIN, PT AGREED. ADMINISTERED HYDROCODONE ORDERED. PT C/O FEELING COLD, ADJUSTED THE ROOM TEMPERATURE AND PLACED AN EXTRA BLANKET ON BED. PT RESTING QUIETLY WITH EYES CLOSED. SB=060 AT PRESENT TIME.
--- NOTE | 2021-02-15 16:10 | NUR ---
PT HIGH FOWLERS IN BED WATCHING TV. DENIES ANY CHEST PAIN/DISCOMFORT OR ANY PAIN. ALERT AND OREINTED. AT BEDSIDE AFTER LUNCH. PT REFUSED BROTH AT LUNCH, ASSISTANCE NEEDED WITH LUNCH. ENCOURAGED PO LIQUIDS, WATER AND APPLE JUICE. IVF INFUSING ORDERED AT 125ML/HR. CONTINUE TO MONITOR.
--- NOTE | 2021-02-15 18:20 | NUR ---
SPOKE WITH DAUGHTER, KESHIA TO GIVE UPDATE ON PT AT 181. PTS AT BEDSIDE. CRITICAL TROPONIN LEVEL: 65.1, CALLED IN BY LAB AT 181. REPORTED TO HCP(KIM) AT 182.
--- NOTE | 2021-02-15 20:48 | NUR ---
PM MEDS GIVEN AT THIS TIME. PT DID NOT WANT TO TAKE HOME MEDICATIONS AT FIRST AND JUST HELD THEM IN HER HAND W/O COMMUNICATING ANYTHING. DEPUTY COURT CLERK HAD TO REORIENT PT BACK TO WHAT WAS HAPPENING AND THAT SHE NEEDED TO TAKE HER 2100 MEDS AND PT COMPLIED. DEPUTY COURT CLERK HAD TO PUT SEVERAL OF PT'S HOME MEDICATIONS IN PT'S MOUTH TO SWALLOW AT A TIME. DEPUTY COURT CLERK HAD TO CUE PT TO OPEN HER MOUTH AND SWALLOW MEDICINES WITH WATER. PORT TO CATH TO LEFT CHEST WALL HAS 1/2 NS @ 125 INFUSING AND 16 F PERALTA STILL INTACT. PT. SITTING UP IN A HIGH FOWLERS POSITION WITH SIDE RAILS UP TIMES TWO WITH BED IN LOWEST POSITION AND DENIES ANY PAIN AT THIS TIME.
[2021-02-16] VITALS: BP 124/85; TEMP 98.9
--- NOTE | 2021-02-16 01:56 | NUR ---
KARINE FROM LAB CALLED BATCH AND FURNACE MANAGER WITH A INCREASED TROPONIN LEVEL OF 67 THAT IS GRADUALLY TRENDING UP. DR GARRISON- ER PHYSICIAN NOTIFIED AT THIS TIME OF LAB RESULT AND STATED THAT PT'S RENAL FUNCTION COULD BE A FACTOR IN PT'S TROPONIN LEVEL. PHYSICIAN ORDERED STAT EKG AND TOLD BATCH AND FURNACE MANAGER TO CALL HIM BACK.
--- NOTE | 2021-02-16 01:58 | NUR ---
EKG RESULTS READ BACK TO PHYSICIAN AT THIS TIME. PHYSICIAN STATED THAT THERE WERE NO SIGNIFICANT CHANGES FROM THE LAST EKG BUT TO CONTINUE TO MONITOR AND GAVE ORDER TO START PT ON PLAVIX 75 MG ONE TIME DOSE NOW AND DAILY. TECHNICAL ADMINISTRATOR EDUCATED PHYSICIAN ON PT'S HOME MEDS. ORDERS NOTED AND CARRIED OUT. NO S/S OF ACUTE CHEST PAIN EXHIBITED BY PT AT THIS TIME.
--- NOTE | 2021-02-16 03:31 | NUR ---
Screened for RD to complete assessment: Diagnosis include acute enteritis and is on a CLD, Dementia, AMS, Hypoxia, COlitis, Gastroenteritis, CP, Dehydration, ARF, Dyspnea, Respiratory, Angina, COPD with exacerbation and with acute bronchitis, Hypothyroidism, Angina, pedla edema, pneumonia, HTN, bacteria in urine, oral thrush,unstable angina, dyspnea, viral infection, upper respiratory infection, weakness, AMS, polypharmacy, COmmunity Acquired Pneumonia, UTI, DMII/2, and receives megace, nitroglycerin, metformin, and labs reveal WBC, RDW, platelet count all elevateed and those depressed are RBC, Hgb, Hct, MCH, MCHC, MPV, and no other labs pending. 5'7" at 166.9 lbs. and BMI at 26 and is overweight and IBW = 135+/-10% (121 to 149 lbs.) and kcal needs for IBW x 25 = 1500, x 30 = 1800, x 35 = 2100, x 40 = 2500 kcal/day and protein needs x .8 to 1.5 = 49 to 92 grams per day and fluids as tolerated d/x dx. and MD to decide on the fluid needs just need to make sure dydrated. RD available as needed. 124% of IBW. RD Recommendations: 1-[facility] 2-PT to work with the patient 3-OT to work with the patient 4-CLD x 24 hours then advance to a 5-FLD x 48 hours and hten advance to a 6-Diabetic Cardiac Renal diet plan and if will not follow 7-Get a dietayr refusal form signed 8-Add Yogurt BID 9-Make sure hydrated
[2021-02-16 04:00] VITALS: BP 133/80; TEMP 97.6
--- NOTE | 2021-02-16 05:04 | NUR ---
TX NOT GIVEN AT THIS TIME. BECAUSE OF PT HEARTRATE.
[2021-02-16 05:40] LABS: PLATELET COUNT 359 K/uL (152-353)
[2021-02-16 05:44] LABS: POTASSIUM 3.8 mmol/L (3.6-5.2)
[2021-02-16 08:00] VITALS: BP 169/89; TEMP 98.9
[2021-02-16 12:00] VITALS: BP 106/60; TEMP 98.7
--- NOTE | 2021-02-16 12:33 | NUR ---
LUDA'S DAUGHTER GAMAL CALLED TO CHECK ON PATIENT. MAINTENANCE PAINTER SPOKE WITH DAUGHTER INFORMING HER THAT SHE RESTED WELL LAST NIGHT, ATE HER JELLO AT BREAKFAST AND TOOK HER MORNING PILLS WITH APPLEJUICE. PATIENT STATES SHE IS FEELING BETTER TODAY.
[2021-02-16 16:00] VITALS: BP 107/54; TEMP 98
--- NOTE | 2021-02-16 17:50 | NUR ---
WHEN DRAMATIC READER GAVE PATIENT 1600 MEDS, NASAL CANULA WAS LYING IN FLOOR BY THE BED. DRAMATIC READER PUT NASAL CANULA BACK ON PATIENT AND EDUCATED ON KEEPING IT IN PLACE. PATIENT SATS WERE 90%. CHARGE NURSE ENTERED ROOM AT 1745 AND STATED TO DRAMATIC READER THAT PATIENT SEEMED TO BE STRUGGLING TO BREATH. SATS CHECKED AND WERE 86%. RESPIRATORY CALLED, SATS 91% RESPIRATIONS 36. DR. ALVAREZ CALLED AND NOTIFIED AND CHEST XRAY ORDERED. RESPIRATORY ADMINISTERING PRN BREATHING TREATMENT
--- NOTE | 2021-02-16 19:48 | NUR ---
ASSISTANT CLINICAL DIRECTOR INFORMED ONCOMING NURSE THE STATUS OF THE PATIENT. UPON ENTERING THE ROOM WITH AIRPLANE PILOT PHOTOGRAMMETRY NURSE, PATIENT IS NOW ABLE TO VERBALIZE THAT SHE IS FEELING BETTER SINCE GIVEN PAIN MEDICATION. RESPIRATIONS 30
[2021-02-16 20:00] VITALS: BP 138/77; TEMP 99.3
--- NOTE | 2021-02-16 20:06 | NUR ---
NOTIFIED DR. GARRISON- ER PHYSICIAN OF PT'S LABORED BREATHING AND CXR RESULTS AT THIS TIME. RECIEVED ORDER FOR LASIX 60 MG IVP ONE TIME DOSE AND TO CONTINUE TO MONITOR.
--- NOTE | 2021-02-16 21:15 | NUR ---
CORPORATE TAX PREPARER DID NOT GIVE PT'S SCHEDULED MEDICINES DUE TO CLINICAL JUDGEMENT AND CURRENT STATUS.
--- NOTE | 2021-02-16 21:55 | NUR ---
NOTIFIED DR. GARRISON AT THIS TIME OF PT. PUTTING OUT 400 ML OF URINE IN 16 F PERALTA AFTER 60 MG LASIX IVP ONE TIME DOSE BUT STILL HAVING TO EXERT INCREASED EFFORTS TO TAKE A BREATH. PHYSICIAN AT THIS TIME ORDERED DECADRON 4 MG IVP ONE TIME DOSE NOW AND Q8H PRN AND IF THAT DOESN'S SUBSIDE THE SYMPTOMS PT WILL NEED TO BE PUT IN THE ICU ON THE BIPAP. O2 SAT IS 91% ON 4L N/C, LABORED BREATHING AT THIS TIME AND PT RESPIRATIONS 42/ MINUTE. PT. AGITATED WANTING TO REACH AND GRAB AT OBJECTS IN CLOSE VICINITY AND PULLING GOWN AND TELEMETRY OFF.
--- NOTE | 2021-02-16 23:12 | NUR ---
DAUGHTER AT BEDSIDE AT THIS TIME HOLDING PT'S HAND AND VERY PLEASANT. DAUGHTER HEARD ABOUT PT'S CHANGE OF STATUS AND WANTED TO SEE PT. DAUGHTER REVEALED THAT SHE HAS NEVER SEEN HER MAMA LIKE THIS AND WANTED TO DISCUSS THE NEXT STEPS MOVING FORWARD TONIGHT. TRAVEL AGENCY MANAGER TOLD DAUGHTER OF PT TRAVEL AGENCY MANAGER WOULD HAVE TO DISCUSS THOSE PLANS WITH THE PHYSICIAN.
--- NOTE | 2021-02-16 23:31 | NUR ---
NOTIFIED DR GARRISON AT THIS TIME OF PT'S DAUGHTER BEING AT BEDSIDE AND PT'S STATUS REMANING UNCHANGED AND PHYSICIAN GAVE EDITOR PUBLICATIONS AN ORDER TO CHANGE PT. TO ICU STATUS AND FOR INTERDISIPLINARY TEAM TO PUT PT ON BIPAP. ORDERS NOTED AND CARRIED OUT. DAUGHTER MADE AWARE OF CHANGE AND WAS CONTENT WITH IT. DAUGHER SAID SHE WAS LEAVING AND GAVE EDITOR PUBLICATIONS CONTACT INFORMATION.
[2021-02-17] VITALS (9 sets, daily range): BP systolic 11–151; BP diastolic 57–78; TEMP 97.9–99.4
--- NOTE | 2021-02-17 01:59 | NUR ---
LATE ENTRY: PATIENT WAS TRANSFERED TO THE ICU UNDER THE ORDERS OF DR GARRISON. ATTIC FANS MECHANIC WAS GIVEN REPORT AT 0020 AND PATIENT WAS FULLY TRANSFERED AND PLACED ON BIPAP AT 0048. 0100: PATIENTS HEART RATE AND RESPIRATIONS HAVE NOW RANGED CLOSER TO NORMAL. PATIENT IS NOT HYPERVENTALATING AND CAN RESPOND TO COMMANDS. PATIENT REPORTS NO PAIN. 0130: PATIENT HAS TO BE PROMPED NOT TO REMOVE BIPAP. RT AT BEDSIDE ASSISTING TO ADJUST MASK. 0150: PATIENT AGAIN REPROMPED TO "KEEP THE MASK ON". PATIENT THEN REPORTED "IT HURTS, I WANT IT OFF". 0200: ER MD CALLED. MD ORDERED THAT THE PATIENT COULD HAVE 1MG ATIVAN IV Q6 PRN FOR ANXITY. MD ALSO ORDERED IF THE PATIENT STILL COULD NOT TOLERATE THE MASK RT CAN WEAN PATIENT. PATIENT BLOOD PRESSURE IS 109/63. ATTIC FANS MECHANIC SPOKE WITH THE RT AND WE AGREED. PATIENT WAS WEANED OFF BIPAP AND PLACED ON NC AT 4 LITERS. PATIENT IS NOW RESTING QUIETLY. RESPIRATIONS ARE 22 NON-LABORED. 02 IS 100% AND HR IS 107. PATIENT DENIES ANY DISCOMFORT
--- NOTE | 2021-02-17 02:33 | NUR ---
PATIENT HAS BEEN CHANGED. PATIENT HAD A LOOSE MEDIUM STOOL
--- NOTE | 2021-02-17 03:06 | NUR ---
RT AT BEDSIDE ADMINISTERING SCHEDULED BREATHING TREATMENT
--- NOTE | 2021-02-17 03:07 | NUR ---
LATE ENTRY: DAUGHTER CALLED AT 0242 AND WAS UPDATED ON HER MOTHERS CURRENT STATUS.
--- NOTE | 2021-02-17 03:21 | NUR ---
RT AT BEDSIDE, PATIENT DROPPED TO 3L NC. PATIENT TOLERATING WELL. 100% O2 AND BPM IS 22
--- NOTE | 2021-02-17 03:22 | NUR ---
LATE ENTRY: INTIAL ASSESMENT OF PATIENT AT 0030 PATIENT IS SOB AND LETHARGIC. PATIENT IS ROUSED WITH CALLING HER NAME. PATIENT [id number] "IM TIRED". PATIENT DENIES ANY PAIN. PATIENTS EYES ARE PERRLA. PATIENT MUCUS MENBRAINS AND GUMS ARE PINK. PATIENT HEART SOUNDS ARE RAPID BUT REGULAR. PATIENT LUNG ARE CLEAR BUT DIMMISHED ON THE LEFT BASE. WHEN THE PATIENT COUGHS SHE WILL HAVE A FEW EXPIRATORY WHEEZES. PATIENT HAS BOWL SOUNDS IN ALL FOUR QUADRANTS. NO PAIN ON PALPATAION. OLD SURGICAL SCARES NOTED. NO SKIN BREAKDOWN NOTED. POSSIABLE AREA OF CONCERN IS THE SACRUM BUT THE SKIN IS BLANCHABLE. PATIENTS RADIAL AND PEDAL PULSES ARE REGULAR. THERE IS +1 EDEMA IN BILATERAL LOWER LEGS. PATIENT REPORTS WEAKNESS BUT BILATERAL COD CLERK ARE NORMAL.
--- NOTE | 2021-02-17 05:27 | NUR ---
PATIENT REPORTED PAINFUL COUGHING, MD ORDERED PRN TESSALON RIMA
--- NOTE | 2021-02-17 06:07 | NUR ---
LAB AT BEDSIDE, LABS RETRIEVED. PATIENT REPORTS COUGHING AND PAIN "FEELS BETTER" PATIENT IS WATCHING TV
[2021-02-17 06:10] LABS: PLATELET COUNT 320 K/uL (152-353)
--- NOTE | 2021-02-17 06:17 | NUR ---
PATIENT IS ON THE BED PEREZ HAVING A BM. Ptient denies pain and is not sob
[2021-02-17 06:30] LABS: POTASSIUM 3.5 mmol/L (3.6-5.2)
--- NOTE | 2021-02-17 06:32 | NUR ---
PATIENT WAS CLEANED. PATIENT DENIES ANY PAIN. PATIENTS FAMILY AHS BEEN UPDATED
--- NOTE | 2021-02-17 07:56 | NUR ---
DR ALVAREZ AT BEDSIDE. ASSESSMENT COMPLETED BY . CHART REVIEWED NEW ORDER GIVEN TO TRANSFER PT [facility]. CONTINUE EXISTING ORDERS.
--- NOTE | 2021-02-17 07:59 | NUR ---
NOTIFIED AFSHAN MITCHELL THAT PT WILL BE MOVED BACK OUT TO MEDSURG FLOOR. PT ASK ABOUT HER CELL PHONE. I ASK MR MITCHELL IF HE KNOWS WHERE HER PHONE IS AT. MR MITCHELL STATED HE HAS HER CELL PHONE AND HE HAS IT CHARGING FOR HER. JOE CALLED FOR UPDATE. SHE WAS ALSO INFOMED THAT MRS MITCHELL WOULD BE MOVED BACK OUT TO MED SURG FLOOR.
--- NOTE | 2021-02-17 08:12 | NUR ---
PT CURRRENTLY RECIEVING NEB TX PER ORDERS
--- NOTE | 2021-02-17 15:30 | NUR ---
AFTER CLEANING PATIENT, JIA RAMESH CLAMPED PERALTA TO START BLADDER TRAINING FOR CATHETER REMOVAL
--- NOTE | 2021-02-17 15:58 | NUR ---
WHILE EATING LUNCH, THERAPY INFORMED NURSING STAFF THAT PATIENT HAD BM IN HER BRIEF. DR. ALVAREZ WAS IN THE ROOM THERAPY WAS TELLING US THAT THE BM HAD A CERTAIN SMELL TO IT. DR. ALVAREZ GAVE A VERBAL ORDER TO HAVE PATIENT TESTED FOR C-DIFF. JIA RAMESH AND DESIGN CENTER CONSULTANT CLEANED PATIENT AND COLLECTED A SPECIMEN. ORDER PLACED IN COMPUTER AND SPECIMEN TAKEN TO LAB.
--- NOTE | 2021-02-17 18:00 | NUR ---
PATIENT EXPRESSED NEEDING TO URINATE WHILE DELIVERING SUPPER TRAY. CATHETER WAS EMPTIED 325ML. CATHETER UNCLAMPED BY VP ACCOUNT DIRECTOR AND 75ML DRAINED FROM PATIENT'S BLADDER. SHE STATED THAT SHE NO LONGER FEELS THE NEED TO URINATE. THE CATHETER WAS THEN RECLAMPED.
[2021-02-18] VITALS (9 sets, daily range): BP systolic 123–153; BP diastolic 53–97; TEMP 98.5–99.2
--- NOTE | 2021-02-18 03:50 | NUR ---
LATE ENTRY: 02/17/21 2300 PATIENTS DAUGHTER WAS UPDATED ON PATIENTS CURRENT CONDITION. PATIENT WAS GIVEN NIGHT MEDICATION AND REPOSITONED IN BED. 0000: PATIENT RESTING QUIETLY 0200: PATIENT IS NOT SOB OR IN PAIN
[2021-02-18 04:57] LABS: PLATELET COUNT 291 K/uL (152-353)
--- NOTE | 2021-02-18 06:03 | NUR ---
PATIENT WAS TURNED AND REPOSITIONED. PATIENT ENIED PAIN
--- NOTE | 2021-02-18 12:55 | NUR ---
PT ALERT AND ORIENTED. HGB=6.8, ORDER FOR BLOOD TRANSFUSION WILL BE ORDERED BY HCP(KIM). HCP TALKED WITH PT AND PT AGREED, CONSENT FORM SIGNED AND ON CHART. PTS AT BEDSIDE AND EXPLAINED PTS STATUS TO HIM. BLADDER TRAINING BEGAN TODAY ON PT TO D/C PERALTA LATER TODAY. PT C/O HEADACHE BUT NO ABDOMINAL PAIN/DISCOMFORT. PORT-A-CATH TO LCW INTACT WITH NO SWELLING OR REDNESS NOTED AND INFUSING IVF ORDERED AT 50 ML/HR. SORE TO PTS LEFT KNEE, HAS SCALB ON IT WITH NO DRAINING AND INCREASED HEALING NOTED.
--- NOTE | 2021-02-18 14:51 | NUR ---
PT ON BLADDER TRAINING. SHE WILL ALERT NSG STAFF WHEN SHE HAS THE URGE TO VOID. ALERT AND ORIENTED. DENIES ANY PAIN/DISCOMFORT.
--- NOTE | 2021-02-18 17:49 | NUR ---
PTS FIRST PRBC'S INFUSING ORDERED. PT TOLERATING INFUSION WELL. NO ADVERSE REACTIONS NOTED. ALERT AND ORIENTED. VS WITHIN NORMAL RANGE. NAD NOTED. PT HAD BM X2 ON THIS SHIFT. LOOSE, SOFT STOOLS NOTED. DENIES ANY PAIN/DISCOMFORT. AT BEDSIDE. CONTINUE TO MONITOR.
--- NOTE | 2021-02-18 18:45 | NUR ---
INFUSION COMPLETED FOR PRBC's FIRST UNIT AT 1835. VITAL SIGNS WNL. NAD NOTED. PT ALERT AND ORIENTED. AND DAUGHTER KESHIA AT BEDSIDE. PT C/O RIGHT HIP PAIN. ADMINISTERED HYDROCODONE ORDERED. BLOOD BAG R/T TO LAB.
--- NOTE | 2021-02-18 21:35 | NUR ---
PT AWAKE WATCHING TV WITH NO S/S OF DISTRESS NOTED, ON O2 AT 2LPM VIA NC, PORT INTACT TO L UPPER CHEST WITH 1/2 NS AT 50ML/HR WITH NO PROBLEMS NOTED TO SITE, SKIN WARM AND DRY, DENIES ANY PROBLEMS, GAVE NIGHTLY PO MEDS WHOLE WITH NO PROBLEMS PT TOOK MEDS AND ALSO HELD DRINK CUP PER SELF. PERALTA PATENT DRAINING TO BEDSIDE. PT TALKATIVE WITH STAFF. WILL MONITOR, RAILS UP, BED IN LOW POSITION, CALL LIGHT IN REACH, ENCOURAGED TO CALL NEEDED.
--- NOTE | 2021-02-18 23:23 | NUR ---
2ND UNIT OF PRBC STARTED AT THIS TIME, INFUSING TO PORT TO L UPPER CHEST AT 75ML/HR, WILL MONITOR FOR S/S OF REACTIONS.
--- NOTE | 2021-02-18 23:38 | NUR ---
ITS BEEN 15 MINUTES SINCE 2ND UNIT PRBC WAS STARTED, NO S/S OF C/O REACTION NOTED AT THIS TIME. INCREASED RATE TO 125ML/HR, WILL MONITOR CLOSELY.
[2021-02-19] VITALS (9 sets, daily range): BP systolic 131–171; BP diastolic 60–91; TEMP 97.6–99
--- NOTE | 2021-02-19 00:45 | NUR ---
DEPEND CHANGED DUE TO BM THAT IS LOOSE, PT HELPS ROLL SIDE TO SIDE IN BED, PULLED UP AND REPOSITIONED IN BED, PERALTA PATENT, PORT INTACT TO L UPPER CHEST WITH 2ND UNIT OF BLOOD INFUSING AT 125ML/HR WITH NO PROBLEMS OR REACTIONS NOTED, PT DENIES ANY OTHER NEEDS AT THIS TIME. TALKATIVE WITH STAFF. WILL MONITOR, RAILS UP, BED IN LOW POSITION WITH ALARM ON, CALL LIGHT IN REACH.
--- NOTE | 2021-02-19 02:55 | NUR ---
2ND UNIT OF PRBC FINISHED INFUSING AT THIS TIME, PORT TO L UPPER CHEST INTACT AND FLUSHED WITH 10ML NS THEN IV FLUIDS STARTED BACK, O2 IN USE, PERALTA PATENT, WILL CHECK VITALS AGAIN AT 0355. ENCOURAGED TO CALL NEEDED, RAILS UP X3, BED IN LOW POSITION WITH ALARM ON, CALL LIGHT IN REACH.
--- NOTE | 2021-02-19 04:40 | NUR ---
RESTING WITH EYES CLOSED, NO S/S OF PAIN OR DISTRESS NOTED, PORT INTACT TO L UPPER CHEST WITH FLUID ONGOING, O2 AT 2LPM VIA NC, PERALTA PATENT, FEET ON PILLOW, WILL MONITOR, RAILS UP, BED IN LOW POSITION, CALL LIGHT IN REACH, BED ALARM ON.
--- NOTE | 2021-02-19 06:30 | NUR ---
PT RESTING IN BED WITH EYES CLOSED, NO S/S OF PAIN OR DISTRESS NOTED, O2 AT 2LPM VIA NC, PERALTA PATENT DRAINING TO BEDSIDE, PORT INTACT TO L UPPER CHEST WITH 1/2 NS INFUSING, AROUSES BRIEFLY TO SEBD TEACHER CALLING NAME, GAVE PO MEDICATION WITH NO PROBLEMS. REMINDED PT TO CALL WHEN SHE FEELS URGE TO URINATE FOR BLADDER TRAINING AND PERALTA CATH CLAMPED. PT ACKNOWLEDGES UNDERSTANDING, RAILS UP X3, BED IN LOW POSITION WITH ALARM ON, CALL LIGHT IN REACH, ENCOURAGED TO CALL NEEDED. FEET ELEVATED ON PILLOW.
[2021-02-19 10:01] LABS: PLATELET COUNT 288 K/uL (152-353)
[2021-02-19 10:55] LABS: POTASSIUM 3.5 mmol/L (3.6-5.2)
--- NOTE | 2021-02-19 11:28 | NUR ---
UPDATED PTS DAUGHTERS, ELIAN ON PTS STATUS. DAUGHTERS WERE CONCERNED ABOUT PTS WELL BEING AT THIS FACILITY AND WERE CONSIDERING TRANSFERRING PT. CONSULTED WITH HCP (KIM) AND INFORMED DAUGHTERS OF HCP'S ADVICE. PT HAS SHOWN IMPROVEMENT SINCE ADMITTED ON 02/15/21. EXPLAINED PTS NEW DX OF POSITIVE FOR C-DIFF AND TX, BLOOD TRANSFUSION R/T LOW HGB AND PTS COGNITIVE AND NUEROLOGICAL FUNCTION. DAUGHTERS AGREED TO ALLOW PT TO REMAIN AT THIS FACILITY. ENCOURAGED DAUGHTERS THAT A NURSING STAFF MEMBER WILL CONTACT THEM IF THERE ARE ANY CHANGES TO PTS STATUS. PT REFUSED PHYSICAL THERAPY THIS MORNING, "I JUST NEED TO REST RIGHT NOW."
--- NOTE | 2021-02-19 13:43 | NUR ---
PT HAS AUDIBLE WHEEZING AND RHONCI NOTED. NOTIFIED RESPIRATORY AND PRN TX WAS DONE ON PT. PT COUGHING UP RED,BRIGHT BLOOD. NOTIFIED HCP(KIM) AND REQUESTED FOR HIM TO COME AND EVALUATE PT [id number]. PTS DAUGHTER AND AT BEDSIDE. PT ALERT AND COHERENT. PERALTA NOT D/C'D, REMAINS INTACT TO MEASURE STRICT I&Os. PER HCP D/C IVF AND CONTINUE TO MONITOR PT.
--- NOTE | 2021-02-19 13:47 | NUR ---
PATIENT COUGHING UP BLOOD AND BBS RHONCHI AND WHEEZING ALONG WITH UPPER AIRWAY WHEEZE PATIENT APPEARED SHORT OF BREATH. PATIENT RECEIVED A BREATHING TREATMENT AND NURSE CALL
--- NOTE | 2021-02-19 15:41 | NUR ---
PT LETHARGIC AND HAVING DIFFICULTY PARTICIPATING WITH PHYSICAL THERAPY THIS EVENING. PRODUCTIVE COUGH, CLEAR, WHITE SPUTUM WITH NO BLOOD PRESENT. DECREASED AUDIBLE WHEEZING SOUNDS NOTED EARLIER DURING THE DAY. REPOSITIONED PT ON HER LEFT SIDE. X-RAY TAKEN AND PER HCP SHOWS BRONCHITIS. NAD NOTED. PRESENT AT BEDSIDE. PT STATED "I FEEL WEAK AND I'M HURTING." ADMINISTERED HYDROCODONE ORDERED. CONTINUE TO MONITOR PT.
--- NOTE | 2021-02-19 18:36 | NUR ---
PT RESTING QUIETLY WITH EYES CLOSED, TURNED ON LEFT SIDE. DAUGHTER, JOE WAS AT BEDSIDE DURING DINNER MEAL. ASSISTED PT WITH DINNER MEAL BUT PT IS ABLE TO FEED HERSELF WITH MINIMUM ASSISTANCE. CONTINUES TO HAVE A PRODUCTIVE COUGH, WITH CLEAR, WHITE SPUTUM AND MODERATE AMOUNT. NO LONGER COUGHING UP BLOOD. PT DENIES ANY PAIN/DISCOMFORT. CONTINUES TO HAVE PERALTA PER HCP(KIM) LEAVE TO MEASURE ACCURATE I&O. PT HAS NOT HAD A BM ON THIS SHIFT. PT ALERT BUT APPEARS TO BE CONFUSED AT TIMES. IVF'S D/C'D BUT PT DOES HAVE PORT-A-CATH ACCESS AVAILABLE. CONTINUE TO MONITOR.
--- NOTE | 2021-02-19 19:45 | NUR ---
PT ALERT AND ORIENTED SITTING UP IN BED WITH NO ACUTE DISTRESS NOTED. DEPEND CHANGED ALONG WITH BOTTOM SHEET AND DRAW SHEET NOTE PT HAD LOOSE BM. REMAINS ON ISOLATION FOR C. DIFF. PERALTA PATENT DRAINING TO BEDSIDE, O2 AT 2LPM VIA NC, PORTACATH INTACT TO L UPPER CHEST WALL WITH NO PROBLEMS NOTED TO SITE, SKIN WARM AND DRY, SEE SHIFT ASSESSMENT FOR MORE INFO. WILL MONITOR, RAILS UP X3, BED IN LOW POSITION WITH ALARM ON, CALL LIGHT IN REACH.
--- NOTE | 2021-02-19 21:50 | NUR ---
PT AWAKE LAYING IN BED, GAVE NIGHTLY MEDICATIONS WHOLE WITH SOME APPLE JUICE, PT HELD CUP AND TOOK MEDICATIONS PER SELF, DENIES ANY PROBLEMS, O2 IN USE VIA NC, PORT INTACT TO L UPPER CHEST WITH NO PROBLEMS NOTED TO SITE, PT REPOSITIONED IN BED, HOB ELEVATED, WILL MONITOR, RAILS UP X3, BED IN LOW POSTIION, CALL LIGHT IN REACH. ENCOURAGED TO CALL NEEDED.
--- NOTE | 2021-02-19 23:13 | NUR ---
GAVE PRN ALBUTEROL INHALER DUE TO AUDIBLE WHEEZING AND RHONCHI, NOISE MORE TO UPPER AIRWAY IMPROVED SLIGHTLY WITH COUGH. WILL MONITOR CLOSELY.
--- NOTE | 2021-02-19 23:45 | NUR ---
REPOSITIONED PT TO R SIDE, FEET ON PILLOW AND HOB ELEVATED, WILL MONITOR, RAILS UP, BED IN LOW POSITION WITH ALARM ON, CALL LIGHT IN REACH.
[2021-02-20 00:30] VITALS: BP 143/82; TEMP 99.2
--- NOTE | 2021-02-20 01:34 | NUR ---
RESSTING IN BED WITH EYES CLOSED, O2 AT 2LPM VIA NC O2 SAT 97%, PERALTA PATENT DRAINING TO BEDSIDE, PORT INTACT TO L UPPER CHEST WITH NO PROBLEMS NOTED TO SITE, AUDIBLE RUMBLING SOUND HEARD DOES IMPROVE SOME WHEN PT INSTRUCTED TO COUGH. AROUSES BRIEFLY AND DENIES ANY NEEDS, WILL MONITOR, RAILS UP X3, BED IN LOW POSITION WITH ALARM ON, CALL LIGHT IN REACH, ENCOURAGED TO CALL NEEDED.
--- NOTE | 2021-02-20 04:15 | NUR ---
RESTING IN BED WITH EYES CLOSED, NO S/S OF PAIN OR DISTRESS NOTED, O2 AT 2LPM VIA NC, PORT INTACT TO L UPPER CHEST, PERALTA PATENT, WILL MONITOR, RAILS UP, BED IN LOW POSITION WITH ALARM ON, CALL LIGHT IN REACH. PT DOES STILL HAVE COUGH AND AUDIBLE WHEEZING. FEET ELEVATED ON PILLOW.
[2021-02-20 04:24] LABS: POTASSIUM 3.2 mmol/L (3.6-5.2)
[2021-02-20 04:30] VITALS: BP 147/89; TEMP 99
[2021-02-20 04:32] LABS: PLATELET COUNT 309 K/uL (152-353)
--- NOTE | 2021-02-20 06:25 | NUR ---
RESTING WITH EYES CLOSED, NO CHANGES NOTED SINCE LAST NOTE, O2 IN USE, PERALTA PATENT, PORTACATH INTACT TO L UPPER CHEST. PT AROUSES BRIEFLY AND DENIES ANY NEEDS. GAVE MORNING PO MED WITH NO PROBLEMS. REPOSITIONED TO BACK, FEET ELEVATED ON PILLOW. RAILS UP X3, BED IN LOW POSITION, CALL LIGHT IN REACH, BED ALARM ON.
[2021-02-20 08:00] VITALS: BP 133/72; TEMP 98.6
--- NOTE | 2021-02-20 08:30 | NUR ---
PATIENT RESTING IN BED. NAD NOTED. PATIENT WEARING NC WITH 2LPM. ADVENTITIOUS BREATH SOUNDS NOTED IN ALL LOBES. ACTIVE BOWEL SOUNDS NOTED.
--- NOTE | 2021-02-20 10:28 | NUR ---
PATIENT REQUESTING BREATHING TREATMENT AT THIS TIME. WHEEZING NOTED AT THIS TIME.
[2021-02-20 12:00] VITALS: BP 151/91; TEMP 98.5
--- NOTE | 2021-02-20 12:25 | NUR ---
UPDATE GIVEN TO FAMILY.
[2021-02-20 16:00] VITALS: BP 143/86; TEMP 98.8
--- NOTE | 2021-02-20 17:23 | NUR ---
PATIENT REQUESTING PAIN MEDS AT THIS TIME.
--- NOTE | 2021-02-20 18:30 | NUR ---
PATIENT REQUESTING NEB TREATMENT AT THIS TIME. RESPIRATORY NOTIFIED.
[2021-02-20 19:53] VITALS: BP 136/85; TEMP 98.8
--- NOTE | 2021-02-20 23:54 | NUR ---
PATIENT WAS ASSESED AND PATIENT REPOTED "HEADACHE." PATIENT WAS GIVEN PM TOPRAMAX. PATIENT WAS REPOSITIONED AND CHANGED HER BRIEF. PATIENT HAS NO BREAKDOEN ON HER SACRUM. PATIENTS PORT IS CLEAN DRY AND INTACT.
[2021-02-21] VITALS (7 sets, daily range): BP systolic 130–154; BP diastolic 73–88; TEMP 98.1–99.4
[2021-02-21 05:43] LABS: PLATELET COUNT 340 K/uL (152-353); POTASSIUM 3.2 mmol/L (3.6-5.2)
--- NOTE | 2021-02-21 07:29 | NUR ---
LATE ENTRY BLADDER TAINING COMPLETE. PERALTA TO BE REMOVED
--- NOTE | 2021-02-21 08:30 | NUR ---
PATIENT RESTING IN BED WATCHING TV. NAD NOTED. ADVENTITUOUS SOUNDS NOTED IN ALL LOBES. BOWEL SOUNDS NOTED IN ALL 4 QUADRANTS. PATIENT WEARING NASAL CANNULA AT 2LPM.
--- NOTE | 2021-02-21 10:56 | NUR ---
16 FR PERALTA D/C. PATIENT TOLERATED WELL. 100 ML OF CELE CLEAR URINE COLLECTED FROM PERALTA BAG. PATIENT NOTIFIED TO CALL FOR ASSISTANCE WHEN NEEDING TO USE THE RESTROOM. PATIENT VERBALIZED UNDERSTANDING. CALL LIGHT WITHIN REACH.
--- NOTE | 2021-02-22 03:13 | NUR ---
PATIENT WAS ASSESED AND PATIENTS HEART AND LUNG SOUNDS WERE CLEAR. WHEN THE PATIENT COUGHS SHE HAS A LOOSE, RALLING, PRODUCTIVE COUGH ACCOMPANIED BY WHEEZING FOR A SHORT TIME AFTER. THE WHEEZING CLEARS AFTER A FEW MINUTES. PATIENT WAS GIVEN PM MEDICATION FOR HEAD PAIN. PATIENTS SCRAP ON HER LEFT KNEE IS HEALING WELL. IT SI NOT OPEN. PATIENT VERBALIZES READNIESS TO "GO HOME". PATIENT CAN [place] BED BUT NEED ASSISTANCE WITH HER DEPENDS. PATIENT LEFT CHEST PORT IS CLEAN DRY AND INTACT.
--- NOTE | 2021-02-22 03:17 | NUR ---
PATIENT HAS BEEN CHANGED AND HELPED TO TURN. PATIENT CAN TURN SELF BUT NEEDS PROMPTING.
[2021-02-22 04:23] VITALS: BP 144/76; TEMP 99.6
[2021-02-22 05:33] LABS: PLATELET COUNT 370 K/uL (152-353)
[2021-02-22 08:00] VITALS: BP 148/91; TEMP 98.4
--- NOTE | 2021-02-22 12:15 | NUR ---
PATIENT CHANGED AT THIS TIME. LOOSE BOWEL MOVEMENT. PATIENT CLEANED AND PINK SCAR NOTED TO L BUTTOCK. AREA IS CLOSED. PATIENT TOLERATED WELL,
--- NOTE | 2021-02-22 12:42 | NUR ---
PORT TO LEFT CHEST WALL HEPLOCKED AND D/C. PATIENT D/C HOME VIA WHEELCHAIR AND PERSONAL VEHICLE WITH DRIVING
== END 2021-02-22 12:42 | disposition home or self-care (01) | DRG 391 ==
LOC: ED 03:59 → MED/SURG 08:01 → ICU 02-17 00:30 → MED/SURG 02-17 08:50
PROVIDERS: Family Medicine; Internal Medicine Endocrinology, Diabetes & Metabolism; ADMIT Internal Medicine; ATTEND Internal Medicine
PROC: 30233N1 Transfusion of Nonautologous Red Blood Cells into Peripheral Vein, Percutaneous Approach (ICD-10-PCS; principal; 2021-02-18)
DX: K52.89 Other specified noninfective gastroenteritis and colitis (principal); A41.89 Other specified sepsis; N17.8 Other acute kidney failure; I48.91 Unspecified atrial fibrillation; I20.8 Other forms of angina pectoris; I11.9 Hypertensive heart disease without heart failure; Z99.81 Dependence on supplemental oxygen; J44.9 Chronic obstructive pulmonary disease, unspecified; E11.9 Type 2 diabetes mellitus without complications; E03.8 Other specified hypothyroidism; R07.89 Other chest pain; F03.90 Unspecified dementia, unspecified severity, without behavioral disturbance, psychotic disturbance, mood disturbance, and anxiety; D64.89 Other specified anemias
CPT/HCPCS: 36415; 36600; 51702; 80048; 80053; 81000; 82150; 82550; 82805; 83605; 83690; 84484; 85007; 85027; 85610; 85730; 86850; 86900; 86901; 86922; 87324; 87449; 87635; 93005; 94640; 94660; 94664; 94760; 96360; 96365; 99284; J0744; J1100; J1642; J1815; J1940; J3490; P9016; U0003

== ENCOUNTER 2021-11-06 13:24 | Emergency (ER) | payer OTHER ==
[~2021-11-06] VITALS: Ht 170.2 cm; Wt 75.3 kg
[2021-11-06 13:24] VITALS: TEMP 98.7
[2021-11-06 13:57] LABS: PLATELET COUNT 287 K/uL (152-353)
[2021-11-06 14:03] LABS: POTASSIUM 4.5 mmol/L (3.6-5.2)
[2021-11-06 14:09] LABS: PARTIAL THROMBOPLASTIN TIME 29.4 SECONDS (24.5-33.6)
[2021-11-06 21:18] VITALS: BP 112/66
== END 2021-11-06 22:16 | disposition still patient (30) ==
LOC: ED 13:24
PROVIDERS: Emergency Medicine
DX: R06.02 Shortness of breath (principal); I95.89 Other hypotension; I26.99 Other pulmonary embolism without acute cor pulmonale; I50.9 Heart failure, unspecified
CPT/HCPCS: 36600; 80053; 82805; 83880; 84443; 84484; 85027; 85379; 85610; 85730; 93005; 96365; 96366; 99284; J1265

== ENCOUNTER → 2022-03-13 | Emergency (ER) | payer OTHER ==
[~2022-03-13] VITALS: Ht 170.2 cm; Wt 75.3 kg
[2022-03-13 22:05] VITALS: BP 104/64; TEMP 98.6
[2022-03-13 23:04] LABS: PLATELET COUNT 432 K/uL (152-353)
[2022-03-13 23:19] LABS: POTASSIUM 5.4 mmol/L (3.6-5.2)
[2022-03-13 23:27] LABS: PARTIAL THROMBOPLASTIN TIME 22.5 SECONDS (24.5-33.6)
== END ==
LOC: ED 22:01
PROVIDERS: Emergency Medicine
DX: N17.8 Other acute kidney failure (principal); D72.828 Other elevated white blood cell count; Z11.52 Encounter for screening for COVID-19
CPT/HCPCS: 36415; 80053; 83605; 83880; 84484; 85027; 85610; 85730; 87635; 93005; 96360; 96374; 96375; 99284; J1170; J2405; U0003